=== PATIENT | male | born 1985 | race Caucasian/White ===

== ENCOUNTER 2019-08-15 09:30 | Emergency (ER) | payer OTHER ==
[2019-08-15 10:19] LABS: Absolute Lymphocytes (CBC) 1.3 K/uL (0.7-4.9); Basophils % 0.5 % (0-1.3); Hematocrit 39.3 % (39.6-49.0); MPV 8.1 fL (7.6-11.3)
[2019-08-15 10:25] LABS: Protime INR 1.01
[2019-08-15 10:35] LABS: Potassium 4.3 mmol/L (3.5-5.1)
--- NOTE | 2019-08-15 10:53 | RAD REPORT ---
EXAM DESCRIPTION: CT - Ct Stroke Brain Wo Cont - 08/15/2019 10:20 am CLINICAL HISTORY: left face, hand and foot numbness COMPARISON: No comparisons TECHNIQUE: Axial 5 millimeter thick images of the head were obtained without IV contrast. All CT scans are performed using dose optimization technique as appropriate and may include automated exposure control or mA/KV adjustment according to patient size. FINDINGS: No intracranial hemorrhage, mass, or cerebral edema. No acute infarction identifiable. No extra-axial fluid collections. Zamudio matter-white matter differentiation is preserved. Visualized portions of the mastoid air cells, paranasal sinuses, and orbits are unremarkable. 2 Findings telephoned to the emergency department 10:48 a.m. IMPRESSION: No CT evidence of acute intracranial process.
[2019-08-15 11:04] LABS: Barbiturates NEGATIVE (NEGATIVE); Benzodiazepines NEGATIVE (NEGATIVE); Cocaine NEGATIVE (NEGATIVE); METHAMPHETAM NEGATIVE (NEGATIVE); Methadone NEGATIVE (NEGATIVE); Opiates NEGATIVE (NEGATIVE); Phencyclidine NEGATIVE (NEGATIVE); THC Cannibis NEGATIVE (NEGATIVE)
[2019-08-15 11:05] LABS: Urine Blood TRACE (NEG); Urine Glucose NEGATIVE (NEG); Urine Protein NEGATIVE (NEG); Urine Specific Gravity 1.025 (1.005-1.030)
--- NOTE | 2019-08-15 11:39 | RAD REPORT ---
EXAM DESCRIPTION: RAD - Chest Single View - 08/15/2019 10:18 am CLINICAL HISTORY: Possible CVAcode stroke chest film TECHNIQUE: AP portable chest image was obtained 08/15/2019 10:18 am . FINDINGS: Lungs are clear. Heart and vasculature are normal. No measurable pleural effusion and no p neumothorax. No acute bony abnormality seen. No acute aortic findings suspected. IMPRESSION: No acute cardiopulmonary process.
--- NOTE | 2019-08-15 14:48 | RAD REPORT ---
EXAM DESCRIPTION: MRI - MRA Head Wo Cont - 08/15/2019 2:41 pm CLINICAL HISTORY: Left face, hand and foot numbness CVA COMPARISON: Ct Stroke Brain Wo Cont dated 08/15/2019 FINDINGS: 3D noncontrast [id number] MR angiography of the [place] was performed. No aneurysm, flow-limiting stenosis or vascular malformation is seen. Forward flow seen in codominant vertebral arteries. The visualized dural venous sinuses appear patent. IMPRESSION: No significant flow abnormality of the [place] is identified.
--- NOTE | 2019-08-15 15:27 | RAD REPORT ---
EXAM DESCRIPTION: MRI - Brain W/Wo Cont - 08/15/2019 3:17 pm CLINICAL HISTORY: left face, hand and foot numbness Headache, drowsiness, CVA symptomology COMPARISON: MRA Head Wo Cont dated 08/15/2019 TECHNIQUE: Multi-sequence, multiplanar MR imaging of the brain was performed with contrast. FINDINGS: No intracranial hemorrhage, hydrocephalus, or extra-axial fluid collection. No edema or sh ift of midline structures. No intracranial mass. DWI is negative for acute CVA. The midline structures are normally formed. Mastoid air cells and paranasal sinuses are clear. Post-contrast images show no abnormal enhancement to suggest tumor or infection. IMPRESSION: No acute or concerning intracranial abnormalities. No pathologic post-contrast enhancement suspected.
--- NOTE | 2019-08-15 15:31 | RAD REPORT ---
EXAM DESCRIPTION: MRI - MRA Neck W/Wo Cont - 08/15/2019 3:17 pm CLINICAL HISTORY: left face, hand and foot numbness Headache, drowsiness COMPARISON: No comparisons FINDINGS: Contrast enhance 2D [id number] MR angiography of the neck vessels was performed. A left aortic arch is identified. Both common carotid arteries and subclavian arteries are patent. Both internal carotid artery show no significant stenosis or flow abnormality. Both vertebral arterie s are codominant with forward flow. IMPRESSION: No significant flow abnormality of the neck vessels.
--- NOTE | 2019-08-15 16:23 | ER ---
Nurse's Notes [facility] Name: Renato Tomlinson Age: 34 yrs Sex: Male : 1985 Arrival Date: 08/15/2019 Time: 09:34 Bed 6 Private MD: Diagnosis: Paresthesia of skin-Left face/hand and foot Presentation: 08/14 09:54 Chief complaint: Patient states: woke up at 0430 this morning and noticed left sided em face numbness, left hand numbness, and right foot numbness, has had a stroke in the past at age 14, denies any other symptoms. Coronavirus screen: Proceed with normal triage. Patient reports a cough. Patient denies shortness of breath or difficulty breathing. Patient denies measured and/or subjective temperature greater than 100.4F prior to today's visit. Patient denies travel on a cruise ship or to a country the [facility] currently lists as an affected area. Patient denies contact with known and/or suspected case of COVID-19. Ebola Screen: Patient negative for fever greater than or equal to 101.5 degrees Fahrenheit, and additional compatible Ebola Virus Disease symptoms Patient denies exposure to infectious person. Patient denies travel to an Ebola-affected area in the 21 days before illness onset. No symptoms or risks identified at this time. Initial Sepsis Screen: Does the patient meet any 2 criteria? No. Patient's initial sepsis screen is negative. Does the patient have a suspected source of infection? No. Patient's initial sepsis screen is negative. Risk Assessment: Do you want to hurt yourself or someone else? Patient reports no desire to harm self or others. Onset of symptoms was August 15, 2019 at 04:30. 09:54 Method Of Arrival: Ambulatory em 09:54 Acuity: MENG 2 em 09:54 An acute neurological deficit is present. The patient has been moved to a treatment em area. Pre-hospital glucose is not applicable to this patient. Triage Assessment: 10:00 The onset of the patients symptoms was August 15, 2019 at 04:30. em Historical: - Allergies: 10:00 No Known Allergies; em - Home Meds: 10:00 None [Active]; em - PMHx: 10:00 stroke at age 14; 2 seizures; Asthma; em - PSHx: 10:00 None; em - Immunization history:: Adult Immunizations not up to date. - Social history:: Smoking status: Patient reports the use of cigarette tobacco products, smokes two packs cigarettes per day. Screenin:55 Abuse screen: Denies threats or abuse. Nutritional screening: No deficits noted. em Tuberculosis screening: No symptoms or risk factors identified. Fall Risk None identified. Assessment: 09:53 General: Appears in no apparent distress. comfortable, Behavior is calm, cooperative, em appropriate for age. Pain: Denies pain. Neuro: Level of Consciousness is awake, alert, obeys commands, Oriented to person, place, time, situation, Appropriate for age Prescriptionist are equal bilaterally Moves all extremities. Gait is steady, Speech is normal, Facial symmetry appears normal, Pupils are pinpoint, Numbness in left side of face, left hand and left foot. Cardiovascular: Capillary refill < 3 seconds Patient's skin is warm and dry. Respiratory: Airway is patent Respiratory effort is even, unlabored, Respiratory pattern is regular, symmetrical. GI: Patient currently denies nausea, vomiting. Derm: Skin is intact, is healthy with good turgor, Skin is pink, warm \T\ dry. Musculoskeletal: Capillary refill < 3 seconds, Range of motion: intact in all extremities. 09:53 VAN Scoring: Arm Drift:. em 10:11 Reassessment: wheeled to CT via wheelchair. em 10:26 Patient has been NPO before screening. The patient is alert, and able to follow em commands. The patient does not exhibit slurred or garbled speech. The patient is not exhibiting difficulty speaking. The patient does not exhibit difficulty understanding words. The patient is able to swallow own secretions with no drooling or need for suction. Patient tolerated one teaspoon of water. No drooling, immediate coughing, gurgling, or clearing of the throat was noted. The patient tolerated 90mL of water. No drooling, immediate coughing, gurgling, or clearing of the throat was noted. The patient passed the bedside swallow screening. Oral medications may be given as ordered. Contact Physician for further diet orders. Provider notified of bedside swallow screening results: Winston Hopkins MD. T-PA (Activase) Screening: Contraindications: Patient reports onset of signs and symptoms of stroke greater than 6 hours ago: Yes. 11:26 Reassessment: Patient appears in no apparent distress at this time. Patient and/or em family updated on plan of care and expected duration. Pain level reassessed. Patient is alert, oriented x 3, equal unlabored respirations, skin warm/dry/pink. 12:38 Reassessment: Patient appears in no apparent distress at this time. Patient and/or em family updated on plan of care and expected duration. Pain level reassessed. Patient is alert, oriented x 3, equal unlabored respirations, skin warm/dry/pink. 13:49 Reassessment: Patient appears in no apparent distress at this time. pt wheeled to MRI em via wheelchair. Vital Signs: 09:54 BP 119 / 67; Pulse 77; Resp 18; Temp 98.7(O); Pulse Ox 97% on R/A; Weight 117.93 kg; em Height 6 ft. 0 in. (182.88 cm); Pain 0/10; 11:00 BP 118 / 63; Pulse 59; Resp 18; Pulse Ox 98% on R/A; em 11:49 BP 104 / 87; Pulse 63; Resp 16; Pulse Ox 99% on R/A; em 13:30 BP 95 / 45; Pulse 51; Resp 16; Pulse Ox 96% on R/A; em 09:54 Body Mass Index 35.26 (117.93 kg, 182.88 cm) em NIH Stroke Scale Scores: 09:53 NIHSS Score: 1 em ED Course: 09:34 Patient arrived in ED. fj1 09:48 Wesley Kiser, RN is Primary Nurse. em 09:50 Patient has correct armband on for positive identification. Bed in low position. Call em light in reach. Pulse ox on. NIBP on. 09:54 Winston Hopkins MD is Attending Physician. kdr 09:58 Triage completed. em 10:00 Arm band placed on. em 10:10 Initial lab(s) drawn, by me, sent to lab. Inserted saline lock: 20 gauge in right em antecubital area, using aseptic technique. Blood collected. 10:17 Stroke CXR 1 View In Process Unspecified. EDMS 10:21 CT Stroke Brain w/o Contrast In Process Unspecified. EDMS 14:42 MRA Head Wo Cont In Process Unspecified. EDMS 14:54 Inserted saline lock: 22 gauge in left antecubital area, using aseptic technique. dh3 15:17 MRA Neck W/Wo Cont In Process Unspecified. EDMS 15:17 Brain W/Wo Cont In Process Unspecified. EDMS Administered Medications: No medications were administered Point of Care Testing: Blood Glucose: 10:10 Blood Glucose: 98 mg/dL; em Ranges: Outcome: 16:23 Discharge ordered by . kdr 16:35 Patient left the ED. NIH Stroke Scale - NIH Stroke Score Date: 08/15/2019 Time: 09:53 Total Score = 1 1a. Level of Consciousness (LOC) - 0(Alert) 1b. Level of Consciousness (LOC) (Year \T\ Age) - 0(Both) 1c. LOC Commands (Open \T\ Closes Eyes/Furnace Room Supervisor) - 0(Both) 2. Best Gaze (Lateral Gaze Paresis) - 0(Normal) 3. Visual Field Loss - 0(No visual loss) 4. Facial Palsy - 0(Normal) 5a. Left Arm: Motor (10-second hold) - 0(No drift) 5b. Right Arm: Motor (10-second hold) - 0(No drift) 6a. Left Leg: Motor (5-second hold - always test supine) - 0(No drift) 6b. Right Leg: Motor (5-second hold - always test supine) - 0(No drift) 7. Limb Ataxia (finger/nose \T\ heel/jenkins - test with eyes open) - 0(Absent) 8. Sensory Loss (pinprick arms/legs/face) - 1(Mild to moderate loss) 9. Best Language: Aphasia (description/naming/reading) - 0(No aphasia) 10. Dysarthria (speech clarity - read or repeat words) - 0(Normal) 11. Extinction and Inattention (visual/tactile/auditory/spatial/personal) - 0(No abnormality) Initials: em Signatures: Dispatcher [employer] EDMS Winston Hopkins MD MD [facility] Wesley Kiser RN RN Krissy Guadalupe RN RN Meera Gandhi [facility] Jaskaran Cook fj1
--- NOTE | 2019-08-15 16:23 | EDPHYS ---
Physician Documentation [facility] Name: Renato Tomlinson Age: 34 yrs Sex: Male : 1985 Arrival Date: 08/15/2019 Time: 09:34 Bed 6 Private MD: ED Physician Winston Hopkins HPI: 08/14 10:36 This 34 yrs old Male presents to ER via Ambulatory with complaints of S/S of kdr Possible Stroke. 10:36 The patient's problem is reported as paresthesias, in left side of face, Left hand and kdr foot. Onset: The symptoms/episode began/occurred this morning, at an unknown time. Duration: This was a single incident, the symptoms became persistent. Context: the episode(s) was witnessed, by no one, symptoms became apparent on August 15, 2019, at 04:30. Awoke with these s/s, occurred at home, occurred while the patient was asleep. The symptoms are alleviated by nothing. The symptoms are aggravated by nothing. Associated signs and symptoms: The patient has no apparent associated signs or symptoms. Severity of symptoms: At their worst the symptoms were very mild in the emergency department the symptoms are unchanged. Patient's baseline: Neuro: alert and fully oriented, Motor: no deficits, Ambulation: walks without assistance, Speech: normal. The patient has not experienced similar symptoms in the past, the patient reports he had a CVA at 14 y/o. The patient has not recently seen a physician. Historical: - Allergies: 10:00 No Known Allergies; em - Home Meds: 10:00 None [Active]; em - PMHx: 10:00 stroke at age 14; 2 seizures; Asthma; em - PSHx: 10:00 None; em - Immunization history:: Adult Immunizations not up to date. - Social history:: Smoking status: Patient reports the use of cigarette tobacco products, smokes two packs cigarettes per day. ROS: 10:36 Constitutional: Negative for fever, chills, and weight loss, Eyes: Negative for injury, kdr pain, redness, and discharge, ENT: Negative for injury, pain, and discharge, Neck: Negative for injury, pain, and swelling, Cardiovascular: Negative for chest pain, palpitations, and edema, Respiratory: Negative for shortness of breath, cough, wheezing, and pleuritic chest pain, Back: Negative for injury and pain, : Negative for injury, bleeding, discharge, and swelling, MS/Extremity: Negative for injury and deformity, Skin: Negative for injury, rash, and discoloration, Neuro: Negative for headache, weakness, numbness, tingling, and seizure activity. Psych: Negative for depression, anxiety, suicide ideation, homicidal ideation, and hallucinations, Allergy/Immunology: Negative for hives, rash, and allergies, Endocrine: Negative for neck swelling, polydipsia, polyuria, polyphagia, and marked weight changes, Hematologic/Lymphatic: Negative for swollen nodes, abnormal bleeding, and unusual bruising. 10:36 Abdomen/GI: Positive for nausea and vomiting, diarrhea, Negative for abdominal distension, anorexia, dysphagia, hematemesis, black/tarry stool, rectal pain, rectal bleeding, bowel incontinence. Exam: 10:36 Constitutional: This is a well developed, well nourished patient who is awake, alert, kdr and in no acute distress. Head/Face: Normocephalic, atraumatic. Eyes: Pupils equal round and reactive to light, extra-ocular motions intact. Lids and lashes normal. Conjunctiva and sclera are non-icteric and not injected. Cornea within normal limits. Periorbital areas with no swelling, redness, or edema. Neck: Trachea midline, no thyromegaly or masses palpated, and no cervical lymphadenopathy. Supple, full range of motion without nuchal rigidity, or vertebral point tenderness. No Meningismus. Chest/axilla: Normal chest wall appearance and motion. Nontender with no deformity. No lesions are appreciated. Cardiovascular: Regular rate and rhythm with a normal S1 and S2. No gallops, murmurs, or rubs. Normal PMI, no JVD. No pulse deficits. Respiratory: Lungs have equal breath sounds bilaterally, clear to auscultation and percussion. No rales, rhonchi or wheezes noted. No increased work of breathing, no retractions or nasal flaring. Abdomen/GI: Soft, non-tender, with normal bowel sounds. No distension or tympany. No guarding or rebound. No evidence of tenderness throughout. Back: No spinal tenderness. No costovertebral tenderness. Full range of motion. Skin: Warm, dry with normal turgor. Normal color with no rashes, no lesions, and no evidence of cellulitis. MS/ Extremity: Pulses equal, no cyanosis. Neurovascular intact. Full, normal range of motion. Neuro: Awake and alert, GCS 15, oriented to person, place, time, and situation. Cranial nerves II-XII grossly intact. Motor strength 5/5 in all extremities. Sensory grossly intact. Cerebellar exam normal. Normal gait. Psych: Awake, alert, with orientation to person, place and time. Behavior, mood, and affect are within normal limits. 08/15 07:43 Radiologist reports: Neg kdr Vital Signs: 08/14 09:54 BP 119 / 67; Pulse 77; Resp 18; Temp 98.7(O); Pulse Ox 97% on R/A; Weight 117.93 kg; em Height 6 ft. 0 in. (182.88 cm); Pain 0/10; 11:00 BP 118 / 63; Pulse 59; Resp 18; Pulse Ox 98% on R/A; em 11:49 BP 104 / 87; Pulse 63; Resp 16; Pulse Ox 99% on R/A; em 13:30 BP 95 / 45; Pulse 51; Resp 16; Pulse Ox 96% on R/A; em 09:54 Body Mass Index 35.26 (117.93 kg, 182.88 cm) em NIH Stroke Scale Scores: 09:53 NIHSS Score: 1 em MDM: 10:36 Data reviewed: vital signs, nurses notes, lab test result(s), radiologic studies. kdr 16:23 Patient medically screened. [facility] 08/14 10:02 Order name: Basic Metabolic Panel; Complete Time: 11:35 [facility] 08/14 10:02 Order name: CBC with Diff; Complete Time: 11:35 [facility] 08/14 10:02 Order name: Protime (+inr); Complete Time: 11:35 [facility] 08/14 10:02 Order name: Ptt, Activated; Complete Time: 11:35 [facility] 08/14 10:03 Order name: ETOH Level; Complete Time: 11:35 [facility] 08/14 10:03 Order name: UDS; Complete Time: 11:35 [facility] 08/14 10:02 Order name: CT Stroke Brain w/o Contrast; Complete Time: 11:35 [facility] 08/14 10:02 Order name: Stroke CXR 1 View; Complete Time: 15:11 [facility] 08/14 10:22 Order name: Glucose, Ancillary Testing; Complete Time: 11:35 EDMS 08/14 10:40 Order name: Urine Dipstick--Ancillary (enter results); Complete Time: 11:35 bd 08/14 13:36 Order name: MRA Head Wo Cont; Complete Time: 15:11 EDMS 08/14 13:37 Order name: MRA Neck W/Wo Cont; Complete Time: 16:21 EDMS 08/14 13:37 Order name: Brain W/Wo Cont; Complete Time: 16:21 EDWY 08/14 10:02 Order name: EKG; Complete Time: 10:03 kdr 08/14 10:02 Order name: Accucheck; Complete Time: 10:13 kdr 08/14 10:02 Order name: Cardiac monitoring; Complete Time: 10: kdr 08/14 10:02 Order name: EKG - Nurse/Tech; Complete Time: 10:29 kdr 08/14 10:02 Order name: IV Saline Lock; Complete Time: 10: kdr 08/14 10:02 Order name: Labs collected and sent; Complete Time: 10: kdr 08/14 10:02 Order name: NPO; Complete Time: 10: kdr 08/14 10:02 Order name: O2 Per Protocol; Complete Time: 10: kdr 08/14 10:02 Order name: O2 Sat Monitoring; Complete Time: 10: [facility] 08/14 10:02 Order name: Stroke Swallow Screen; Complete Time: 10:29 kdr Administered Medications: No medications were administered Point of Care Testing: Blood Glucose: 10:10 Blood Glucose: 98 mg/dL; em Ranges: Critical Glucose Levels:Adult <50 mg/dl or >400 mg/dl <40 mg/dl or >180 mg/dl Disposition: 08/15/19 16:23 Discharged to Home. Impression: Paresthesia of skin - Left face/hand and foot. - Condition is Stable. - Discharge Instructions: Peripheral Neuropathy, Paresthesia, [id number]. - Medication Reconciliation Form, Thank You Letter, Antibiotic Education, Prescription Opioid Use form. - Follow up: Private Physician; When: 2 - 3 days; Reason: If symptoms return, Further diagnostic work-up, Recheck today's complaints, Continuance of care, Re-evaluation by your physician. - Problem is new. - Symptoms have improved. NIH Stroke Scale - NIH Stroke Score Date: 08/15/2019 Time: 09:53 Total Score = 1 1a. Level of Consciousness (LOC) - 0(Alert) 1b. Level of Consciousness (LOC) (Year \T\ Age) - 0(Both) 1c. LOC Commands (Open \T\ Closes Eyes/Placement Assistant) - 0(Both) 2. Best Gaze (Lateral Gaze Paresis) - 0(Normal) 3. Visual Field Loss - 0(No visual loss) 4. Facial Palsy - 0(Normal) 5a. Left Arm: Motor (10-second hold) - 0(No drift) 5b. Right Arm: Motor (10-second hold) - 0(No drift) 6a. Left Leg: Motor (5-second hold - always test supine) - 0(No drift) 6b. Right Leg: Motor (5-second hold - always test supine) - 0(No drift) 7. Limb Ataxia (finger/nose \T\ heel/jenkins - test with eyes open) - 0(Absent) 8. Sensory Loss (pinprick arms/legs/face) - 1(Mild to moderate loss) 9. Best Language: Aphasia (description/naming/reading) - 0(No aphasia) 10. Dysarthria (speech clarity - read or repeat words) - 0(Normal) 11. Extinction and Inattention (visual/tactile/auditory/spatial/personal) - 0(No abnormality) Initials: em Signatures: Dispatcher [employer] Winston Rae MD MD [facility] Wesley Kiser RN RN Krissy Guadalupe RN RN Corrections: (The following items were deleted from the chart) 13:36 10:03 MR STROKE PROTOCOL+MRI.RAD.BRZ ordered. [facility] 16:35 16:23 08/15/2019 16:23 Discharged to Home. Impression: Paresthesia of skin - hb Left face/hand and foot. Condition is Stable. Forms are Medication Reconciliation Form, Thank You Letter, Antibiotic Education, Prescription Opioid Use. Follow up: Private Physician; When: 2 - 3 days; Reason: If symptoms return, Further diagnostic work-up, Recheck today's complaints, Continuance of care, Re-evaluation by your physician. Problem is new. Symptoms have improved. kdr
[2019-08-15 16:43] VITALS: TEMP 98.7
[2019-08-15 16:47] VITALS: BP 95/45; O2SAT 96
== END 2019-08-15 16:35 | disposition home or self-care (01) ==
LOC: ER 09:30
DX: R20.2 Paresthesia of skin (principal); F17.210 Nicotine dependence, cigarettes, uncomplicated; R29.701 NIHSS score 1
CPT/HCPCS: 93005; 85025; 80048; 36415; 80320; 85610; 82947; 80307 ×8; 85730; 81003; 70450; 71045; 70553; 70544; 70549; 99284; A9577